=== PATIENT | female | born 1995 | race Caucasian/White ===

== ENCOUNTER 2020-10-10 17:26 | Outpatient (CLI) | payer OTHER ==
[~2020-10-10 17:26] MED LIST: ZITHROMAX250 MG PO
== END 2020-10-10 19:31 | disposition home or self-care (01) ==
LOC: GENOP 17:26
DX: O62.9 Abnormality of forces of labor, unspecified (principal); O26.893 Other specified pregnancy related conditions, third trimester; M54.5 Low back pain; M25.552 Pain in left hip; M25.551 Pain in right hip; O12.03 Gestational edema, third trimester; Z3A.39 39 weeks gestation of pregnancy
CPT/HCPCS: 81001; G0463

== ENCOUNTER 2020-10-18 05:44 | Inpatient (IN) | payer OTHER ==
[~2020-10-18] VITALS: Ht 172.7 cm; Wt 150.1 kg
[2020-10-18 06:56] LABS: HEMOGLOBIN 11.4 gm/dl (12.3-15.3); RED BLOOD COUNT 3.61 M/UL (4.00-5.10); WHITE BLOOD COUNT 14.5 K/UL (4.5-11.0)
[2020-10-18] MEDS ORDERED: IBUPROFEN600 MG PO (16:07)
[2020-10-18] MEDS ORDERED: DOCUSATE SODIU100 MG PO (16:07)
[2020-10-19 06:26] LABS: HEMOGLOBIN 10.5 gm/dl (12.3-15.3)
[2020-10-19] MEDS ORDERED: DOCUSATE SODIU250 MG PO (13:16)
[2020-10-19] MEDS ORDERED: IBUPROFEN600 MG PO (13:16)
== END 2020-10-19 18:32 | disposition home or self-care (01) | DRG 807 ==
LOC: OB 05:44
PROVIDERS: ADMIT Obstetrics & Gynecology
PROC: 10907ZC Drainage of Amniotic Fluid, Therapeutic from Products of Conception, Via Natural or Artificial Opening (ICD-10-PCS; principal; 2020-10-18)
PROC: 10E0XZZ Delivery of Products of Conception, External Approach (ICD-10-PCS; 2020-10-18)
PROC: 4A1HX4Z Monitoring of Products of Conception, Cardiac Electrical Activity, External Approach (ICD-10-PCS; 2020-10-18)
DX: O48.0 Post-term pregnancy (principal); Z37.0 Single live birth; Z3A.40 40 weeks gestation of pregnancy; O99.214 Obesity complicating childbirth; E66.9 Obesity, unspecified; Z20.822 Contact with and (suspected) exposure to COVID-19
CPT/HCPCS: 36415; 81001; 82800; 85014; 85018; 85025; C9113; J0595; J2590; J7120; U0003

== ENCOUNTER 2020-12-19 12:38 | Emergency (ER) | payer OTHER ==
[~2020-12-19 12:38] MED LIST changes: +DOCUSATE SODIU100 MG PO; +DOCUSATE SODIU250 MG PO; +IBUPROFEN600 MG PO
[2020-12-19 13:44] LABS: HEMOGLOBIN 12.7 gm/dl (12.3-15.3); RED BLOOD COUNT 4.14 M/UL (4.00-5.10); WHITE BLOOD COUNT 13.2 K/UL (4.5-11.0)
[2020-12-19 14:01] LABS: BUN/CREATININE RATIO 21 (0-10)
[2020-12-19] MEDS ORDERED: MOTION RELIEF25 MG PO (16:31)
== END 2020-12-19 16:30 | disposition home or self-care (01) ==
LOC: ER1 12:38
PROVIDERS: Physician Assistant
DX: R42 Dizziness and giddiness (principal); R11.2 Nausea with vomiting, unspecified; F17.210 Nicotine dependence, cigarettes, uncomplicated
CPT/HCPCS: 70450; 80053; 81001; 84703; 85025; 93005; 96374; 99284; J2405; J7030

== ENCOUNTER 2021-06-24 20:08 | Emergency (ER) | payer OTHER ==
[~2021-06-24 20:08] MED LIST changes: +MOTION RELIEF25 MG PO
[2021-06-24 21:06] LABS: HEMOGLOBIN 13.4 gm/dl (12.3-15.3); RED BLOOD COUNT 4.44 M/UL (4.00-5.10)
[2021-06-24 21:23] LABS: BUN/CREATININE RATIO 11 (0-10)
== END 2021-06-25 00:25 | disposition left against medical advice (07) ==
LOC: ER1 20:08
PROVIDERS: Emergency Medicine; Physician Assistant
DX: R26.81 Unsteadiness on feet (principal); H55.09 Other forms of nystagmus; F17.210 Nicotine dependence, cigarettes, uncomplicated; Z20.822 Contact with and (suspected) exposure to COVID-19
CPT/HCPCS: 70496; 70498; 71045; 80053; 80307; 81001; 82550; 82553; 83874; 84484; 84703; 85025; 87086; 93005; 99284; U0002

== ENCOUNTER 2021-06-25 03:10 | Emergency (ER) | payer OTHER | END 2021-06-25 11:24 | disposition short-term general hospital (02) | LOC: ER1 03:10 | DX: H55.00 Unspecified nystagmus (principal); R26.81 Unsteadiness on feet; F17.210 Nicotine dependence, cigarettes, uncomplicated; Z20.822 Contact with and (suspected) exposure to COVID-19 | CPT/HCPCS: 96374; 99284; J2405 ==